=== PATIENT | female | born 1980 ===

== ENCOUNTER 2018-01-27 12:53 | Emergency (ER) | payer MEDICAID ==
[2018-01-27 13:08] VITALS: BMI 37.5
[2018-01-27 13:11] VITALS: BP 154/94; PULSE 84; TEMP 98.4; O2SAT 97
[2018-01-27] MEDS ORDERED: Amoxicillin 250 mg/5 ml Susp (100 ml) PO STA (13:20)
--- NOTE | 2018-01-27 13:22 | C.PDOC ---
History Of Present Illness 37-year-old female presents to the emergency room complaining of left upper dental pain and swelling since yesterday. She attempted to see her dentist but he is unable to see her until February 01, 2018. Patient states she took naproxen at home with mild relief. She denies any fever, injury, discharge or bleeding from mouth. Time Seen by Provider: 01/27/18 13:17 Chief Complaint (Nursing): Dental Pain History Per: Patient History/Exam Limitations: no limitations Onset/Duration Of Symptoms: Hrs Current Symptoms Are (Timing): Still Present Quality: Positive for: "Pain" Past Medical History Reviewed: Historical Data, Nursing Documentation, Vital Signs Vital Signs: Last Vital Signs Temp 98.4 F 01/27/18 13:09 Pulse 84 01/27/18 13:09 Resp 18 01/27/18 13:53 BP 154/94 H 01/27/18 13:09 Pulse Ox 97 01/27/18 14:19 Family History: States: Unknown Family Hx - Social History Hx Tobacco Use: No Hx Alcohol Use: No Hx Substance Use: No - Immunization History Hx Tetanus Toxoid Vaccination: No Hx Influenza Vaccination: No Hx Pneumococcal Vaccination: No Review Of Systems Except As Marked, All Systems Reviewed And Found Negative. Constitutional: Negative for: Fever, Chills, Other (discharge or bleeding from mouth) ENT: Positive for: Other (Dental pain, gingival swelling) Physical Exam - Physical Exam Appears: Well, Non-toxic, No Acute Distress Skin: Warm, Dry, No Rash Head: Atraumatic, Normacephalic Eye(s): bilateral: Normal Inspection Oral Mucosa: Moist Gingiva: Erythema (left upper gingiva), Swelling, Other (left central incisor mildly tender to percussion) Throat: Normal, No Erythema, No Exudate, No Drooling Neck: Normal ROM Chest: Symmetrical Cardiovascular: Rhythm Regular, No Murmur Respiratory: Normal Breath Sounds, No Rales, No Rhonchi, No Wheezing Extremity: Normal ROM Extremity: Bilateral: Atraumatic, Normal Color And Temperature, Normal ROM Pulses: Left Radial: Normal, Right Radial: Normal Neurological/Psych: Oriented x3, Normal Speech Pain Response: Withdraws With Pain Gait: Steady ED Course And Treatment O2 Sat by Pulse Oximetry: 97 (RA) Pulse Ox Interpretation: Normal Medical Decision Making Medical Decision Making: Impression: 37 year old female with left upper dental pain/swelling Plan: --Amoxicillin 500 mg PO Disposition Counseled Patient/Family Regarding: Diagnosis, Need For Followup, Rx Given - Disposition Disposition: HOME/ ROUTINE Disposition Time: 13:21 Condition: STABLE Additional Instructions: Take antibiotic twice a day Take pain medicine as needed Follow up with your dentist as scheduled Prescriptions: Amoxicillin 800 mg PO Q12 10 Days #200 ml Instructions: Dental Pain (DC) Forms: [email or web address] ([email or web address]) - POA Present On Arrival: None - Clinical Impression Clinical Impression: Dental caries, Gingivitis - Scribe Statement The provider has reviewed the documentation as recorded by the Scribe (Lizbeth Fernandez) All medical record entries made by the Scribe were at my direction and personally dictated by me. I have reviewed the chart and agree that the record accurately reflects my personal performance of the history, physical exam, medical decision making, and the department course for this patient. I have also personally directed, reviewed, and agree with the discharge instructions and disposition.
[2018-01-27] MEDS ORDERED: Amoxicillin 250 mg/5 ml Susp (100 ml) ONE (13:35)
[2018-01-27 13:53] VITALS: RESP 18
== END 2018-01-27 13:57 | disposition home or self-care (01) ==
LOC: C.ER 12:53
DX: K02.9 Dental caries, unspecified (principal); K05.10 Chronic gingivitis, plaque induced